=== PATIENT | male | born 1950 | race African-American/Black ===

== ENCOUNTER 2018-04-23 12:21 | Inpatient (IN) | payer OTHER ==
[2018-04-23 13:46] VITALS: BMI 15.3
--- NOTE | 2018-04-23 14:59 | HP ---
COWS - Scale Resting Pulse: 0= [place] 80 or Below Sweatin=Flushed/Facial Moisture Restless Observation: 1= Difficult to Sit Still Pupil Size: 1= Pupils >than Normal Bone or Joint Aches: 2= Severe Diffuse Aches Runny Nose/ Eye Tearin= Runny Nose/Eyes GI Upset > 30mins: 0= None Tremor Observation: 2= Slight Tremor Visible Yawning Observation: 1= 1-2x During Session Anxiety or Irritability: 2=Irritable/Anxious Goose Flesh Skin: 0=Smooth Skin COWS Score: 13 CIWA Score Nausea/Vomitin-No Nausea/No Vomiting Muscle Tremors: 2 Anxiety: 3 Agitation: 2 Paroxysmal Sweats: 2 Orientation: 1-Uncertain about Date Tacttile Disturbances: 0-None Auditory Disturbances: 0-None Visual Disturbances: 0-None Headache: 2-Mild CIWA-Ar Total Score: 12 - Admission Criteria [facility]AS[facility] Guidelines: Admission for Medically Managed Detox: Requires at least one of the followin. CIWA greater than 12 2. Seizures within the past 24 hours 3. Delirium tremens within the past 24 hours 4. Hallucinations within the past 24 hours 5. Acute intervention needed for co occurring medical disorder 6. Acute intervention needed for co occurring psychiatric disorder 7. Severe withdrawal that cannot be handled at a lower level of care (continued vomiting, continued diarrhea, abnormal vital signs) requiring intravenous medication and/or fluids 8. Admission [facility] Chief Complaint: ETOH/HEROIN WITHDRAWAL SX. History of Present Illness: PATIENT PRESENTS WITH ETOH/HEROIN WITHDRAWAL SX. THIS IS PATIENTS FIRST ADMISSION HERE AT [facility]. PATIENT WAS AT [facility] YEARS AGO. PATIENT STARTED SNIFFING HEROIN AND DRINKING ETOH IN 1988. PATIENT SNIFFS 7 BAGS OF HEROIN DAILY AND DRINKS 6 BEER DAILY. LAST TIME HE USED BOTH SUBSTANCES WAS THIS MORNING. PATIENT DENIES BLACK OUTS , FALLS, SEIZURES AND OVERDOSES. PATIENT DRINKS FIRST THING IN THE MORNING. PATIENT DENIES SIGNIFICANT PMH/PSH. DENIES SI/HI AND SUICIDE ATTEMPTS. Exam Limitations: No Limitations - Ebola screening Have you traveled outside of the country in the last 21 days: No Have you had contact with anyone from an Ebola affected area: No Have you been sick,other than usual withdrawal symptoms: No Do you have a fever: No - Review of Systems Constitutional: Chills, Night Sweats, Changes in sleep EENT: reports: Tearing, Nose Congestion Respiratory: reports: Cough (DRY COUGH) Cardiac: reports: No Symptoms Reported GI: reports: Poor Fluid Intake : reports: No Symptoms Reported Musculoskeletal: reports: Back Pain, Joint Pain, Muscle Pain Integumentary: reports: Sweating Neuro: reports: Headache, Tremors Endocrine: reports: No Symptoms Reported Hematology: reports: No Symptoms Reported Psychiatric: reports: Orientated x3 Patient History - Patient Medical History Hx Anemia: No Hx Asthma: No Hx Chronic Obstructive Pulmonary Disease (COPD): No Hx Cancer: No Hx Cardiac Disorders: No Hx Congestive Heart Failure: No Hx Hypertension: No Hx Hypercholesterolemia: No Hx Pacemaker: No HX Cerebrovascular Accident: No Hx Seizures: No Hx Dementia: No Hx Diabetes: No Hx Gastrointestinal Disorders: No Hx Liver Disease: No Hx Genitourinary Disorders: No Hx Sexually Transmitted Disorders: No Hx Renal Disease (ESRD): No Hx Thyroid Disease: No Hx Human Immunodeficiency Virus (HIV): No (LAST TEST THIS YEAR, NEGATIVE. ) Hx Hepatitis C: No Hx Depression: No Hx Suicide Attempt: No Hx Bipolar Disorder: No Hx Schizophrenia: No - Patient Surgical History Past Surgical History: No Anesthesia Reaction: No - PPD History Previous Implant?: Yes Documented Results: Negative w/o proof PPD to be Administered?: Yes - Smoking Cessation Smoking history: Current every day smoker Have you smoked in the past 12 months: Yes Aproximately how many cigarettes per day: 20 Hx Chewing Tobacco Use: No Initiated information on smoking cessation: Yes 'Breaking Loose' booklet given: 04/23/18 - Substance & Tx. History Hx Alcohol Use: Yes Hx Substance Use: Yes Substance Use Type: Alcohol, Heroin Hx Substance Use Treatment: Yes - Substances Abused Alcohol Route: Oral Frequency: Daily Amount used: 6 BEERS Age of first use: 46 Date of Last Use: 04/23/18 Heroin Route: Inhalation Frequency: Daily Amount used: 7 BAGS Age of first use: 46 Date of Last Use: 04/23/18 Family Disease History - Family Disease History Family History: Denies Admission Physical Exam BHS - Vital Signs Vital Signs: Vital Signs - 24 hr 04/23/18 13:42 Temperature 97.9 F Pulse Rate 74 Respiratory 18 Rate Blood Pressure 138/87 - Physical General Appearance: Yes: Appropriately Dressed, Disheveled, Tremorous, Sweating HEENTM: Yes: EOMI, Hearing grossly Normal, Normocephalic, Normal Voice, STEVE, Pharynx Normal, Nasal Congestion Respiratory: Yes: Chest Non-Tender, Lungs Clear, Normal Breath Sounds, No Respiratory Distress, No Accessory Muscle Use Neck: Yes: No masses,lesions,Nodules, Supple, Trachea in good position Breast: Yes: Breast Exam Deferred Cardiology: Yes: Regular Rhythm, Regular Rate, S1, S2 Abdominal: Yes: Normal Bowel Sounds, Non Tender, Flat, Soft Genitourinary: Yes: Within Normal Limits Back: Yes: Muscle Spasm Musculoskeletal: Yes: full range of Motion, Gait Steady, Back pain, Muscle Pain Extremities: Yes: Normal Inspection, Normal Range of Motion, Non-Tender, Tremors 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 - Detox or Rehab [facility] Level of Care: Medically Managed Detox Regimen/Protocol: Methadone/Librium [facility] Breath Alcohol Content Breath Alcohol Content: 0 Urine Drug Screen - Results Drug Screen Negative: No Urine Drug Screen Results: OPI-Opiates, BAR-Barbiturates, OXY-Oxycodone
[2018-04-23] MEDS ORDERED: NICOTINE POLACRILEX 2 MG GUM BC PRN (15:10)
[2018-04-23] MEDS ORDERED: ACETAMINOPHEN 325 MG TABLET (FP) PO PRN (15:10)
[2018-04-23] MEDS ORDERED: hydrOXYzine PAMOATE 50 MG CAPSULE (FP) PO PRN (15:10)
[2018-04-23] MEDS ORDERED: MAGNESIUM CITRATE 300 ML BOTTLE PO PRN (15:10)
[2018-04-23] MEDS ORDERED: MENTHOL/PHENOL 1 EACH UD MM PRN (15:10)
[2018-04-23] MEDS ORDERED: IBUPROFEN 400 MG TABLET (FP) PO PRN (15:10)
[2018-04-23] MEDS ORDERED: MAGNESIUM HYDROX 2400MG/30ML ORAL SUSPENSION 30 ML CUP PO PRN (15:10)
[2018-04-23] MEDS ORDERED: P-EPHED 60MG/TRIPROLIDI 2.5MG TABLET PO PRN (15:10)
[2018-04-23] MEDS ORDERED: guaiFENesin/D-METHORPHAN HB 10 ML UNIT-DOSE CUPS PO PRN (15:10)
[2018-04-23] MEDS ORDERED: MAG HYDROX/AL HYDROX/SIMETH 30 ML UNIT-DOSE CUP PO PRN (15:10)
[2018-04-23] MEDS ORDERED: LOPERAMIDE HCL 2 MG CAPSULE PO PRN (15:10)
[2018-04-23] MEDS ORDERED: chlordiazePOXIDE HCL 25 MG CAPSULE PO PRN (15:13)
[2018-04-23] MEDS ORDERED: METHADONE HCL 10 MG TABLET (FOR DETOX USE ONLY) PO ONE ×2 (16:30→23:00)
[2018-04-23] MEDS: chlordiazePOXIDE HCL 25 MG CAPSULE PO SCH ×2 (17:41→22:41)
[2018-04-23] MEDS: THIAMINE HCL 100 MG TABLET (FP) PO SCH (22:41)
[2018-04-24] MEDS: chlordiazePOXIDE HCL 25 MG CAPSULE PO SCH ×4 (06:00→22:20)
[2018-04-24] MEDS ORDERED: METHADONE HCL 10 MG TABLET (FOR DETOX USE ONLY) PO SCH (10:00)
[2018-04-24] MEDS: PRENATAL VITAMINS W/ FOLIC ACID TABLET (FP) PO SCH (10:25)
[2018-04-24] MEDS: NICOTINE 21 MG/24 HOURS TOPICAL PATCH TD SCH (10:26)
[2018-04-24 10:33] LABS: HEMATOCRIT 45.1 % (35.4-49); HEMOGLOBIN 14.2 GM/dL (11.7-16.9); MCH 29.6 pg (25.7-33.7); MCHC 31.4 g/dl (32.0-35.9); MEAN CELL VOLUME 94.1 fl (80-96); MEAN PLT VOLUME 9.5 fl (7.5-11.1); PLATELET COUNT 109 K/MM3 (134-434); RBC 4.79 M/mm3 (4.00-5.60); RDW 12.9 % (11.9-15.9); WHITE BLOOD COUNT 3.6 K/mm3 (4.0-10.0)
[2018-04-24 11:38] LABS: ALBUMIN 3.9 g/dl (3.4-5.0); ALK PHOS 84 U/L (45-117); ANION GAP 8 MMOL/L (8-16); BLOOD UREA NITROGEN 6 mg/dL (7-18); CALCIUM 8.5 mg/dL (8.5-10.1); CHLORIDE 98 mmol/L (98-107); CO2 30 mmol/L (21-32); CREATININE 0.6 mg/dL (0.55-1.3); GLUCOSE,RANDOM 78 mg/dL (74-106); POTASSIUM 4.5 mmol/L (3.5-5.1); SGOT/AST 34 U/L (15-37); SGPT/ALT 18 U/L (13-61); SODIUM 136 mmol/L (136-145); TOT PROT 8.2 g/dl (6.4-8.2)
--- NOTE | 2018-04-24 16:06 | PN ---
[facility] CIWA - CIWA Score Nausea/Vomitin-Mild Nausea/No Vomiting Muscle Tremors: 4-Moderate,w/Arms Extend Anxiety: 1-Mildly Anxious Agitation: 4-Moderately Restless Paroxysmal Sweats: 1-Minimal Palms Moist Orientation: 1-Uncertain about Date Tacttile Disturbances: 0-None Auditory Disturbances: 0-None Visual Disturbances: 0-None Headache: 0-None Present CIWA-Ar Total Score: 12 S COWS - Scale Resting Pulse: 0= [place] 80 or Below Sweatin= Chills/Flushing Restless Observation: 0= Sits Still Pupil Size: 0= Normal to Room Light Bone or Joint Aches: 1= Mild Discomfort Runny Nose/ Eye Tearin= Nasal Congestion GI Upset > 30mins: 2= Nausea/Diarrhea Tremor Observation of Outstretched Hands: 2= Slight Tremor Visible Yawning Observation: 1= 1-2x During Session Anxiety or Irritability: 1=Feels Anxious/Irritable Goose Flesh Skin: 0=Smooth Skin COWS Score: 9 S Progress Note (SOAP) Subjective: body aches tremor joints pain sweat anxiety Objective: 04/24/18 16:05 Vital Signs Temperature 97.8 F 04/24/18 13:31 Pulse Rate 83 04/24/18 13:31 Respiratory Rate 18 04/24/18 13:31 Blood Pressure 91/72 04/24/18 13:31 O2 Sat by Pulse Oximetry (%) Laboratory Last Values WBC 3.6 K/mm3 (4.0-10.0) L 04/24/18 06:00 RBC 4.79 M/mm3 (4.00-5.60) 04/24/18 06:00 Hgb 14.2 GM/dL (11.7-16.9) 04/24/18 06:00 Hct 45.1 % (35.4-49) 04/24/18 06:00 MCV 94.1 fl (80-96) 04/24/18 06:00 MCH 29.6 pg (25.7-33.7) 04/24/18 06:00 MCHC 31.4 g/dl (32.0-35.9) L 04/24/18 06:00 RDW 12.9 % (11.9-15.9) 04/24/18 06:00 Plt Count 109 K/MM3 (134-434) L 04/24/18 06:00 MPV 9.5 fl (7.5-11.1) 04/24/18 06:00 Sodium 136 mmol/L (136-145) 04/24/18 06:00 Potassium 4.5 mmol/L (3.5-5.1) 04/24/18 06:00 Chloride 98 mmol/L (98-107) 04/24/18 06:00 Carbon Dioxide 30 mmol/L (21-32) 04/24/18 06:00 Anion Gap 8 MMOL/L (8-16) 04/24/18 06:00 BUN 6 mg/dL (7-18) L 04/24/18 06:00 Creatinine 0.6 mg/dL (0.55-1.3) 04/24/18 06:00 Creat Clearance w eGFR > 60 (>60) 04/24/18 06:00 Random Glucose 78 mg/dL (74-106) 04/24/18 06:00 Calcium 8.5 mg/dL (8.5-10.1) 04/24/18 06:00 Total Bilirubin 1.0 mg/dL (0.2-1) 04/24/18 06:00 AST 34 U/L (15-37) 04/24/18 06:00 ALT 18 U/L (13-61) 04/24/18 06:00 Alkaline Phosphatase 84 U/L (45-117) 04/24/18 06:00 Total Protein 8.2 g/dl (6.4-8.2) 04/24/18 06:00 Albumin 3.9 g/dl (3.4-5.0) 04/24/18 06:00 RPR Titer Nonreactive (NONREACTIVE) 04/24/18 06:00 HIV 1&2 Antibody Screen Negative 04/23/18 15:49 HIV P24 Antigen Negative 04/23/18 15:49 lab noted Assessment: 04/24/18 16:05 withdrawal sx Plan: continue detox
[2018-04-24] MEDS: THIAMINE HCL 100 MG TABLET (FP) PO SCH (22:20)
[2018-04-24] MEDS: MELATONIN 5 MG TABLETS PO PRN (22:20)
[2018-04-25] MEDS: chlordiazePOXIDE HCL 25 MG CAPSULE PO SCH ×2 (06:37→10:19)
[2018-04-25] MEDS ORDERED: METHADONE HCL 5 MG TABLET (FOR DETOX USE ONLY) PO SCH (10:00)
[2018-04-25] MEDS: NICOTINE 21 MG/24 HOURS TOPICAL PATCH TD SCH (10:19)
[2018-04-25] MEDS: PRENATAL VITAMINS W/ FOLIC ACID TABLET (FP) PO SCH (10:19)
[2018-04-25] MEDS ORDERED: LIDOCAINE 5% TOPICAL PATCH TP SCH (10:35)
--- NOTE | 2018-04-25 14:07 | PN ---
S CIWA - CIWA Score Nausea/Vomitin-Mild Nausea/No Vomiting Muscle Tremors: 2 Anxiety: 2 Agitation: 2 Paroxysmal Sweats: No Perspiration Orientation: 0-Oriented Tacttile Disturbances: 0-None Auditory Disturbances: 0-None Visual Disturbances: 0-None Headache: 2-Mild CIWA-Ar Total Score: 9 BHS COWS - Scale Resting Pulse: 0= [place] 80 or Below Sweatin= No chills or Flushing Restless Observation: 1= Difficult to Sit Still Pupil Size: 1= Pupils >than Normal Bone or Joint Aches: 2= Severe Diffuse Aches Runny Nose/ Eye Tearin= None GI Upset > 30mins: 2= Nausea/Diarrhea Tremor Observation of Outstretched Hands: 2= Slight Tremor Visible Yawning Observation: 1= 1-2x During Session Anxiety or Irritability: 2=Irritable/Anxious Goose Flesh Skin: 0=Smooth Skin COWS Score: 11 BHS Progress Note (SOAP) Subjective: PATIENT C/O ANXIETY/RESTLESSNESS, HEADACHE, BODY ACHES, SLEEP DISTURBANCE AND MILD NAUSEA. Objective: 04/25/18 14:11 Vital Signs Temperature 96.8 F L 04/25/18 09:24 Pulse Rate 76 04/25/18 13:03 Respiratory Rate 16 04/25/18 13:03 Blood Pressure 119/90 04/25/18 13:03 O2 Sat by Pulse Oximetry (%) Laboratory Tests 04/23/18 04/24/18 04/24/18 15:49 06:00 06:00 WBC 3.6 L RBC 4.79 Hgb 14.2 Hct 45.1 MCV 94.1 MCH 29.6 MCHC 31.4 L RDW 12.9 Plt Count 109 L MPV 9.5 Sodium 136 Potassium 4.5 Chloride 98 Carbon Dioxide 30 Anion Gap 8 BUN 6 L Creatinine 0.6 Creat Clearance w eGFR > 60 Random Glucose 78 Calcium 8.5 Total Bilirubin 1.0 AST 34 ALT 18 Alkaline Phosphatase 84 Total Protein 8.2 Albumin 3.9 RPR Titer HIV 1&2 Antibody Screen Negative HIV P24 Antigen Negative 04/24/18 06:00 WBC RBC Hgb Hct MCV MCH MCHC RDW Plt Count MPV Sodium Potassium Chloride Carbon Dioxide Anion Gap BUN Creatinine Creat Clearance w eGFR Random Glucose Calcium Total Bilirubin AST ALT Alkaline Phosphatase Total Protein Albumin RPR Titer Nonreactive HIV 1&2 Antibody Screen HIV P24 Antigen PE: ALERT AND ORIENTED X 3 SKIN WARM AND DRY EXT FULL ROM, AMB AD VINAYAK. +TREMORS ANXIOUS/RESTLESS 04/25/18 14:12 Assessment: 04/25/18 14:12 WITHDRAWAL SX Plan: CONTINUE DETOX ENCOURAGE ORAL FLUIDS CONTINUE TO MONITOR CLINICALLY
[2018-04-25] MEDS: chlordiazePOXIDE 5 MG CAPSULE PO SCH ×2 (17:06→22:17)
[2018-04-25] MEDS ORDERED: LIDOCAINE PATCH REMOVAL MC SCH (22:00)
[2018-04-25] MEDS: THIAMINE HCL 100 MG TABLET (FP) PO SCH (22:17)
[2018-04-25] MEDS: MELATONIN 5 MG TABLETS PO PRN (22:18)
[2018-04-26] MEDS: chlordiazePOXIDE 5 MG CAPSULE PO SCH ×2 (05:29→06:03)
[2018-04-26 06:20] VITALS: BP 115/79; PULSE 65; TEMP 97.2
--- NOTE | 2018-04-26 14:13 | DS ---
[facility] Detox Discharge Summary Admission Date: 04/23/18 Discharge Date: 04/26/18 - History Present History: Alcohol Dependence, Opioid Dependence Pertinent Past History: Denies - Physical Exam Results Vital Signs: Vital Signs Temperature 97.2 F L 04/26/18 06:18 Pulse Rate 65 04/26/18 06:18 Respiratory Rate 18 04/26/18 06:30 Blood Pressure 115/79 04/26/18 06:18 O2 Sat by Pulse Oximetry (%) Pertinent Admission Physical Exam Findings: Withdrawal sx Laboratory Last Values WBC 3.6 K/mm3 (4.0-10.0) L 04/24/18 06:00 RBC 4.79 M/mm3 (4.00-5.60) 04/24/18 06:00 Hgb 14.2 GM/dL (11.7-16.9) 04/24/18 06:00 Hct 45.1 % (35.4-49) 04/24/18 06:00 MCV 94.1 fl (80-96) 04/24/18 06:00 MCH 29.6 pg (25.7-33.7) 04/24/18 06:00 MCHC 31.4 g/dl (32.0-35.9) L 04/24/18 06:00 RDW 12.9 % (11.9-15.9) 04/24/18 06:00 Plt Count 109 K/MM3 (134-434) L 04/24/18 06:00 MPV 9.5 fl (7.5-11.1) 04/24/18 06:00 Sodium 136 mmol/L (136-145) 04/24/18 06:00 Potassium 4.5 mmol/L (3.5-5.1) 04/24/18 06:00 Chloride 98 mmol/L (98-107) 04/24/18 06:00 Carbon Dioxide 30 mmol/L (21-32) 04/24/18 06:00 Anion Gap 8 MMOL/L (8-16) 04/24/18 06:00 BUN 6 mg/dL (7-18) L 04/24/18 06:00 Creatinine 0.6 mg/dL (0.55-1.3) 04/24/18 06:00 Creat Clearance w eGFR > 60 (>60) 04/24/18 06:00 Random Glucose 78 mg/dL (74-106) 04/24/18 06:00 Calcium 8.5 mg/dL (8.5-10.1) 04/24/18 06:00 Total Bilirubin 1.0 mg/dL (0.2-1) 04/24/18 06:00 AST 34 U/L (15-37) 04/24/18 06:00 ALT 18 U/L (13-61) 04/24/18 06:00 Alkaline Phosphatase 84 U/L (45-117) 04/24/18 06:00 Total Protein 8.2 g/dl (6.4-8.2) 04/24/18 06:00 Albumin 3.9 g/dl (3.4-5.0) 04/24/18 06:00 RPR Titer Nonreactive (NONREACTIVE) 04/24/18 06:00 HIV 1&2 Antibody Screen Negative 04/23/18 15:49 HIV P24 Antigen Negative 04/23/18 15:49 Labs noted - Medication Discharge Medications: Ambulatory Orders NK [No Known Home Medication] 04/23/18 - Diagnosis (1) Nicotine dependence Status: Acute (2) Alcohol dependence with uncomplicated withdrawal Status: Acute (3) Opioid dependence with withdrawal Status: Acute - AMA Did Patient Leave Against Medical Advice: Yes
[2018-04-26] MEDS ORDERED: chlordiazePOXIDE HCL 10 MG CAPSULE PO SCH (17:00)
[2018-04-27] MEDS ORDERED: METHADONE HCL 10 MG TABLET (FOR DETOX USE ONLY) PO SCH (10:00)
[2018-04-28] MEDS ORDERED: METHADONE HCL 5 MG TABLET (FOR DETOX USE ONLY) PO SCH (06:00)
== END 2018-04-26 08:57 | disposition left against medical advice (07) | DRG 894 ==
LOC: YASAS 12:21 → Y3N 15:58
PROC: HZ2ZZZZ Detoxification Services for Substance Abuse Treatment (ICD-10-PCS; principal; 2018-04-23)
DX: F19.230 Other psychoactive substance dependence with withdrawal, uncomplicated (principal); F11.23 Opioid dependence with withdrawal; F10.230 Alcohol dependence with withdrawal, uncomplicated; F17.210 Nicotine dependence, cigarettes, uncomplicated
CPT/HCPCS: 36415; 80053; 85027; 86593; 87389